=== PATIENT | male | born 1960 | race Caucasian/White ===

== ENCOUNTER 2017-12-02 08:29 | Observation (INO) | payer BC, OTHER ==
[2017-12-02 08:58] LABS: CHLORIDE,CL 100 mEq/L (98-106); SODIUM,NA 139 mEq/L (136-145)
[2017-12-02] MEDS ORDERED: Magnesium Hydroxide 400 MG/5 ML Susp 30 ML Cup PO PRN (16:07)
[2017-12-02] MEDS ORDERED: Albuterol/Ipratropium 3.0-0.5 MG/3 ML Neb Soln NEB PRN (16:07)
[2017-12-02] MEDS ORDERED: Temazepam 15 MG Cap PO PRN (16:07)
[2017-12-02] MEDS: Sodium Chloride 0.9% 1,000 ML IV SCH (19:13)
[2017-12-02] MEDS: OSELTAMIVIR 75 MG PO SCH (19:53)
[2017-12-02] MEDS: Acetaminophen 325 MG Tab PO PRN (19:53)
[2017-12-03] MEDS: Acetaminophen 325 MG Tab PO PRN ×2 (00:30→04:36)
[2017-12-03] MEDS: Sodium Chloride 0.9% 1,000 ML IV SCH (02:45)
--- NOTE | 2017-12-03 06:51 | PCM.PN ---
- General Info Date of Service: 12/03/17 Functional Status: Reports: Pain Controlled, Tolerating Diet, Ambulating, Urinating - Review of Systems General: Reports: Fever HEENT: Reports: Sinus Congestion, Rhinitis Pulmonary: Reports: Cough, Sputum Cardiovascular: Reports: No Symptoms Gastrointestinal: Reports: No Symptoms Genitourinary: Reports: No Symptoms Musculoskeletal: Reports: Other (body aches) Skin: Reports: No Symptoms Neurological: Reports: No Symptoms Psychiatric: Reports: No Symptoms - Patient Data Vitals - Most Recent: Last Vital Signs Temp 99.3 F 12/03/17 04:00 Pulse 82 12/03/17 04:00 Resp 20 12/03/17 04:00 BP 127/67 12/03/17 04:00 Pulse Ox 96 12/03/17 04:00 Weight - Most Recent: 230 lb I&O - Last 24 Hours: Intake & Output 12/02/17 12/02/17 12/03/17 14:59 22:59 06:59 Intake Total 1553 Output Total 800 Balance 753 Lab Results Last 24 Hours: Laboratory Results - last 24 hr 12/02/17 12/02/17 Range/Units 08:36 08:36 WBC 7.7 (5.0-10.0) 10^3/uL RBC 5.23 (4.50-6.00) 10^6/uL Hgb 15.6 (14.0-18.0) g/dL Hct 47.0 (40.0-54.0) % MCV 89.9 (82.0-94.0) fL MCH 29.8 (27.0-32.0) pg MCHC 33.2 (33.0-38.0) g/dL RDW Coeff of [place] 12.6 (11.0-15.0) % Plt Count 197 (150-400) 10^3/uL Neut % (Auto) 71.0 (35-85) % Lymph % (Auto) 14.1 (10-55) % [place] % (Auto) 14.1 (0-16) % Eos % (Auto) 0.3 (0-5) % Baso % (Auto) 0.5 (0-3) % Neut # (Auto) 5.44 (1.80-7.00) 10^3/uL Lymph # (Auto) 1.08 (1.00-4.80) 10^3/uL [place] # (Auto) 1.08 H (0.00-0.80) 10^3/uL Eos # (Auto) 0.02 (0.00-0.45) 10^3/uL Baso # (Auto) 0.04 10^3/uL Sodium 139 (136-145) mEq/L Potassium 3.7 (3.5-5.0) mEq/L Chloride 100 (98-106) mEq/L Carbon Dioxide 31 (21-32) mmol/L BUN 21 H (7-18) mg/dL Creatinine 1.2 (0.7-1.3) mg/dL Est Cr Clr Drug Dosing TNP Estimated GFR (MDRD) > 60 (>=60) mL/min Glucose 111 H (75-99) mg/dL Calcium 9.0 (8.4-10.1) mg/dL Total Bilirubin 0.4 (0.0-1.0) mg/dL AST 26 (15-37) U/L ALT 44 (12-78) U/L Alkaline Phosphatase 78 (46-116) U/L C-Reactive Protein 2.7 H (0.2-0.8) mg/dL Total Protein 8.0 (6.4-8.2) g/dL Albumin 3.6 (3.4-5.0) g/dL Med Orders - Current: Current Medications Acetaminophen (Tylenol) 650 mg PO Q4H PRN PRN Reason: Pain (Mild 1-3)/fever Last Admin: 12/03/17 04:36 Dose: 650 mg Albuterol/Ipratropium (Duoneb 3.0-0.5 Mg/3 Ml) 3 ml NEB Q4H PRN PRN Reason: Shortness Of Breath/wheezing Chlorthalidone (Chlorthalidone) 12.5 mg PO DAILY [facility] Sodium Chloride (Normal Saline) 1,000 mls @ 100 mls/hr IV ASDIRECTED [facility] Last Admin: 12/03/17 02:45 Dose: 100 mls/hr Magnesium Hydroxide (Milk Of Magnesia) 30 ml PO Q12H PRN PRN Reason: Constipation Methylprednisolone Sodium Succinate (Solu-Medrol) 62.5 mg IVPUSH Q24H [facility] Oseltamivir Phosphate (Tamiflu) 75 mg PO BID [facility] Last Admin: 12/02/17 19:53 Dose: 75 mg Temazepam (Restoril) 15 mg PO BEDTIME PRN PRN Reason: Sleep - Exam General: Alert, Oriented, Cooperative, No Acute Distress HEENT: Pupils Equal, Pupils Reactive, Mucous Membr. Moist/[place] Neck: Supple Lungs: Clear to Auscultation, Normal Respiratory Effort Cardiovascular: Regular Rate, Regular Rhythm, No Murmurs GI/Abdominal Exam: Soft, Non-Tender Back Exam: Normal Inspection, Full Range of Motion. No: CVA Tenderness (L), CVA Tenderness (R) Extremities: Normal Inspection, Normal Range of Motion, Non-Tender, No Pedal Edema, Normal Capillary Refill Peripheral Pulses: 2+: Radial (L), Radial (R), Posterior Tibial (L), Posterior Tibial (R) Skin: Warm, Dry, Intact Neurological: No New Focal Deficit Psy/Mental Status: Alert, Normal Affect, Normal Mood - Problem List Review Problem List Initiated/Reviewed/Updated: Yes - Plan Plan:: This patient is a 57 year old male admitted yesterday for possible influenza. This facility is out of influenza testing kits, treatment based on clinical presentation. Patient reports runny nose, congestion, drainage, cough, body aches, fever. Patient is alert and oriented. Appears to be in no acute distress. Labs yesterday CBC and BMP unremarkable. CXR still has no results yet. Will continue [facility] treatment of Tamiflu and the admit. I have ordered labs for today, will review this tomorrow, and evaluate him again tomorrow. I will check on CXR results as well. Plan is to discharge patient tomorrow.
[2017-12-03 07:43] LABS: CHLORIDE,CL 102 mEq/L (98-106); SODIUM,NA 139 mEq/L (136-145)
[2017-12-03] MEDS: methylPREDNISolone Sodium Succinate 125 MG/2 ML SDV IVPUSH SCH (08:35)
[2017-12-03] MEDS: OSELTAMIVIR 75 MG PO SCH ×2 (08:35→20:00)
[2017-12-04] MEDS: OSELTAMIVIR 75 MG PO SCH (08:13)
[2017-12-04 08:19] VITALS: BP 131/90
--- NOTE | 2017-12-04 09:58 | PCM.DCSUM1 ---
Discharge Summary - Hospital Course HPI Initial Comments: This patient is a 57 year old male that presents to the ER. The patient was admitted for possible influenza. The patient today reports that his runny nose, congestion, drainage, and cough have been feeling much better. He reports they feel like they are almost completely resolved. He is talking in full and complete sentences without any difficulties. The patient is ambulating the hallways without any problems. The patient reports he would like to go home. I will be discharging him home. The patient is alert and oriented. Labs are unremarkable. - Discharge Data Discharge Date: 12/04/17 Discharge Disposition: Home, Self-Care 01 Condition: Good - Patient Instructions Diet: Usual Diet as Tolerated Activity: As Tolerated Driving: May Drive Today Showering/Bathing: May Shower Notify Provider of: Fever, Nausea and/or Vomiting - Discharge Plan Home Medications: Home Meds Chlorthalidone 12.5 mg PO DAILY 12/02/17 [History] Oseltamivir [Tamiflu] 75 mg PO BID 12/02/17 [History] Oseltamivir Phosphate [IJD: Tamiflu] 75 mg PO BID capsule 12/04/17 [Rx] Patient Handouts: Influenza, Adult, [id number] - Discharge Summary/Plan Comment DC Time >30 min.: No Discharge Summary/Plan Comment: Followup with your primary care provider this week as needed Return to the ER for worsening of condition or any emergent concerns Increase fluids Tylenol or Motrin for fever or pain - General Info Functional Status: Reports: Pain Controlled, Tolerating Diet, Ambulating - Review of Systems General: Reports: No Symptoms HEENT: Reports: Post Nasal Drip Pulmonary: Reports: Cough, Sputum Cardiovascular: Reports: No Symptoms Gastrointestinal: Reports: No Symptoms Genitourinary: Reports: No Symptoms Musculoskeletal: Reports: No Symptoms Skin: Reports: No Symptoms Neurological: Reports: No Symptoms Psychiatric: Reports: No Symptoms - Patient Data Vitals - Most Recent: Last Vital Signs Temp 98.6 F 12/04/17 08:00 Pulse 75 12/04/17 08:00 Resp 16 12/04/17 08:00 BP 131/90 12/04/17 08:00 Pulse Ox 98 12/04/17 08:00 Weight - Most Recent: 230 lb I&O - Last 24 hours: Intake & Output 12/03/17 12/04/17 12/04/17 22:59 06:59 14:59 Intake Total 800 200 Output Total 700 1450 Balance 100 -1250 Med Orders - Current: Current Medications Acetaminophen (Tylenol) 650 mg PO Q4H PRN PRN Reason: Pain (Mild 1-3)/fever Last Admin: 12/03/17 04:36 Dose: 650 mg Albuterol/Ipratropium (Duoneb 3.0-0.5 Mg/3 Ml) 3 ml NEB Q4H PRN PRN Reason: Shortness Of Breath/wheezing Chlorthalidone (Chlorthalidone) 12.5 mg PO DAILY [facility] Last Admin: 12/04/17 08:13 Dose: 12.5 mg Magnesium Hydroxide (Milk Of Magnesia) 30 ml PO Q12H PRN PRN Reason: Constipation Methylprednisolone Sodium Succinate (Solu-Medrol) 62.5 mg IVPUSH Q24H [facility] Last Admin: 12/03/17 08:35 Dose: 62.5 mg Oseltamivir Phosphate (Tamiflu) 75 mg PO BID [facility] Last Admin: 12/04/17 08:13 Dose: 75 mg Temazepam (Restoril) 15 mg PO BEDTIME PRN PRN Reason: Sleep Discontinued Medications Sodium Chloride (Normal Saline) 1,000 mls @ 100 mls/hr IV ASDIRECTED [facility] Last Admin: 12/03/17 02:45 Dose: 100 mls/hr - Exam General: Reports: Alert, Oriented, Cooperative, No Acute Distress HEENT: Reports: Pupils Equal, Pupils Reactive, Mucous Membr. Moist/[place] Neck: Reports: Supple, Trachea Midline, No JVD, No Thyromegaly Lungs: Reports: Clear to Auscultation, Normal Respiratory Effort Cardiovascular: Reports: Regular Rate, Regular Rhythm, No Murmurs GI/Abdominal Exam: Soft, Non-Tender Back Exam: Reports: Normal Inspection, Full Range of Motion Extremities: Normal Inspection, Normal Range of Motion, Non-Tender, No Pedal Edema, Normal Capillary Refill Skin: Reports: Warm, Dry, Intact Psy/Mental Status: Reports: Alert, Normal Affect, Normal Mood *Q Meaningful Use (DIS) - VTE *Q VTE Criteria *Q: - Stroke *Q Stroke Criteria *Q: - AMI *Q AMI Criteria *Q:
[2017-12-04] MEDS: methylPREDNISolone Sodium Succinate 125 MG/2 ML SDV IVPUSH SCH (11:46)
== END 2017-12-04 11:30 | disposition home or self-care (01) ==
LOC: CC.MS 08:29 → CC.FCMC 08:29 → CC.MS 14:56 → UNDOADMOB 14:56 → CC.MS 16:07
PROVIDERS: ADMIT Nurse Practitioner Family; ATTEND General Practice
DX: R05 Cough (principal); R09.89 Other specified symptoms and signs involving the circulatory and respiratory systems; R09.81 Nasal congestion; R50.9 Fever, unspecified; Z79.899 Other long term (current) drug therapy
CPT/HCPCS: 36415; 71046; 80048; 80053; 85025; 86140; 93005; 96361; 96374; A9270-GY; G0378; J2930; J7030

== ENCOUNTER 2024-09-21 15:32 | Emergency (ER) | payer BC ==
[2024-09-21 15:49] VITALS: BP 130/103; PULSE 108
[2024-09-21 16:02] LABS: BASOPHILS ABSOLUTE AUTO 0.03 10^3/uL (0.00-0.50); BASOPHILS PERCENT AUTO 0.3 % (0-1); EOSINOPHILS ABSOLUTE AUTO 0.03 10^3/uL (0.00-1.50); EOSINOPHILS PERCENT AUTO 0.3 % (0-6); HEMATOCRIT 47.6 % (42.0-52.0); HEMOGLOBIN 15.6 g/dL (14.0-18.0); IMMATURE GRAN ABSOLUTE AUTO 0.03 10^3/uL (0.00-0.49); IMMATURE GRAN PERCENT AUTO 0.3 % (0.0-4.9); LYMPHOCYTES ABSOLUTE AUTO 2.22 10^3/uL (0.60-5.00); LYMPHOCYTES PERCENT AUTO 25.3 % (24-44); MEAN CORPUSCULAR HEMOGLOBIN 29.9 pg (27.0-32.0); MEAN CORPUSCULAR HGB CONC 32.8 g/dL (32.0-36.0); MEAN CORPUSCULAR VOLUME 91.4 fL (83.0-97.0); MONOCYTES ABSOLUTE AUTO 0.59 10^3/uL (0.00-1.50); MONOCYTES PERCENT AUTO 6.7 % (0-10); NEUTROPHILS ABSOLUTE AUTO 5.87 x10^3/uL (1.80-8.00); NEUTROPHILS PERCENT AUTO 67.1 % (41-71); PLATELET COUNT,PLT 181 10^3/uL (150-400); RED BLOOD CELL COUNT 5.21 x10^6/uL (4.50-6.00); WHITE BLOOD CELL COUNT,WBC 8.8 10^3/uL (4.0-11.0)
[2024-09-21 16:14] LABS: ALBUMIN 3.5 g/dL (3.4-5.0); BILIRUBIN TOTAL 0.4 mg/dL (0.0-1.0); C-REACTIVE PROTEIN 0.74 mg/dL (<=0.50); CALCIUM 9.3 mg/dL (8.4-10.1); CREATININE 1.3 mg/dL (0.7-1.3); EST CRCL DRUG DOSING (CG) 50.59 mL/min; POTASSIUM,K 3.7 mEq/L (3.5-5.0); PROTEIN TOTAL,TP 7.6 g/dL (6.4-8.2)
== END 2024-09-21 17:10 | disposition home or self-care (01) ==
LOC: CC.ED 15:32
DX: U07.1 COVID-19 (principal); I10 Essential (primary) hypertension; Z79.899 Other long term (current) drug therapy
CPT/HCPCS: 36415; 80053; 85025; 86140; 87428-QW; 99283